=== PATIENT | female | born 1985 | race Caucasian/White ===

== ENCOUNTER 2017-03-18 23:23 | Emergency (ER) | payer MEDICAID ==
--- NOTE | 2017-03-18 23:30 | EDPHY ---
H & P HPI/ROS: HPI CHIEF COMPLAINT: "I am feeling Anxious" HISTORY OF PRESENT ILLNESS: This patient very pleasant 31-year-old female she presents emergency room by EMS with anxiety. Patient tells me that she staying at a local [facility] she has been recently feeling very anxious. She normally takes Xanax. She tells me that she is unsure exactly when her last dose of Xanax was. She states her anxiety increased this evening but does not give me specific reasons. At this time she is declining anxiety medicine she would like to rest here at this time. Of note she is not very forthcoming in answering any of my questions. The history and review of systems somewhat limited due to this. She denies any intoxication or drug use tonight. Past Medical History: Acute anxiety Past Surgical History: No recent surgery Social History: Denies daily use of drugs alcohol tobacco products. Family History: Noncontributory ROS REVIEW OF SYSTEMS: Limited due to patient forthcoming with answers. Exam Constitutional somewhat anxious, triage nursing summary reviewed, vital signs reviewed, awake/alert. Eyes normal conjunctivae and sclera, EOMI, PERRLA. HENT normal inspection, atraumatic, moist mucus membranes, no epistaxis, neck supple/ no meningismus, no raccoon eyes. Respiratory clear to auscultation bilaterally, normal breath sounds, no respiratory distress, no wheezing. Cardiovascular rate normal, regular rhythm, no murmur, no edema, distal pulses normal. Gastrointestinal soft, non-tender, no rebound, no guarding, normal bowel sounds, no distension, no pulsatile mass. Genitourinary no CVA tenderness. Musculoskeletal no midline vertebral tenderness, full range of motion, no calf swelling, no tenderness of extremities, no meningismus, good pulses, neurovascularly intact. Skin pink, warm, & dry, no rash, skin atraumatic. Neurologic awake, alert and oriented x 3, AAOx3, moves all 4 extremities equally, motor intact, sensory intact, CN II-XII intact, normal cerebellar, normal vision, normal speech. Psychiatric somewhat anxious, normal mood/affect. Heme/Lymph/Immune no lymphadenopathy. 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 Will re-evaluate shortly. Re-evaluation: 1208AM: I did re-evaluate the patient. Patient states that she would like to take something for her anxiety. 1 mg p.o. Ativan as been ordered. 1250AM: This patient has been re-evaluated resting comfortably no acute distress. She actually declined 1 mg p.o. Ativan. Patient states she is feeling much better and does not want to take anxiety medication. She tells me her anxiety is well controlled now. She would like to be discharged from the emergency room. Source: Patient, EMS Constitutional: Initial Vital Signs Temperature (C) 36.9 C 03/18/17 23:33 Heart Rate 70 03/18/17 23:33 Respiratory Rate 20 03/18/17 23:33 Blood Pressure 133/85 H 03/18/17 23:33 O2 Sat (%) 98 03/18/17 23:33 O2 Delivery Mode Room Air Allergies/Adverse Reactions: No Known Allergies Allergy (Unverified 03/18/17 23:33) Home Medications: Medication Instructions Recorded Xanax 03/18/17 Departure - Departure Disposition: Home, Routine, Self-Care Clinical Impression: Anxiety Condition: Good Instructions: Anxiety (ED) Referrals: Patient,NotPresent [Primary Care Provider] - As per Instructions [facility],. [Clinic] - As per Instructions
[2017-03-18 23:35] VITALS: RESP 20
[2017-03-18] MEDS ORDERED: LORazepam 1 MG TAB PO ONE (23:50)
[2017-03-18] MEDS ORDERED: LORazepam 1 MG TAB ONE (23:50)
[2017-03-19 01:08] VITALS: BP 108/76; PULSE 76; TEMP 98.1; O2SAT 96
== END 2017-03-19 01:10 | disposition home or self-care (01) ==
DX: F41.9 Anxiety disorder, unspecified (principal)